=== PATIENT | female | born 1990 | race Caucasian/White ===

== ENCOUNTER → 2020-09-19 | Outpatient (CLI) | payer BC ==
[~2020-09-19] MED LIST: COLACE 100100 MG/CAP PO; FLONASEALLERGY NS; LEXAPRO20 MG PO; MOTRIN 800800 MG/TAB PO; PERCOCET 325 MG1 TA2 PO; PRENATAL MVI; ZYRTEC 10MG10 MG PO
== END ==
LOC: ZCOL.LAB 18:19
DX: R10.31 Right lower quadrant pain (principal)

== ENCOUNTER → 2020-09-25 | Outpatient (CLI) | payer OTHER | LOC: COL.LAB 11:49 | DX: O36.80X1 Pregnancy with inconclusive fetal viability, fetus 1 (principal); Z3A.00 Weeks of gestation of pregnancy not specified ==

== ENCOUNTER 2021-05-23 10:48 | Inpatient (IN) | payer OTHER ==
[~2021-05-23] VITALS: Ht 170.2 cm; Wt 102.7 kg
[2021-05-28] VITALS (54 sets, daily range): BP systolic 81–131; BP diastolic 38–80; PULSE 58–104; TEMP 97.5–98.2
--- NOTE | 2021-05-28 06:24 | NUR ---
Pt arrives on unit ambulatory with spouse for IOL. Changed into a clean gown. EFM and toco applied. VSS. Denies vaginal bleeding, LOF, regular ctx and reports GFM. IV started in LW. Labs drawn. LR infusing. Admission assessment completed. Consents signed. Pt updated on POC. Bed locked in low position. Call light within reach. Oriented to room. No questions or concerns at this time.
[2021-05-28] MEDS ORDERED: ZYRTEC 10MG10 MG PO (06:50)
[2021-05-28] MEDS ORDERED: LEXAPRO20 MG PO (06:50)
[2021-05-28] MEDS ORDERED: FLONASEALLERGY NS (06:51)
[2021-05-28] MEDS ORDERED: PRENATAL MVI (06:51)
[2021-05-28] MEDS ORDERED: COLACE 100100 MG/CAP PO (06:51)
[2021-05-28 07:24] LABS: BASO % 0.4 % (0.0-2.0); EOS % 0.4 % (0-4.0); GRAN # 8.5 K/mm3 (1.4-6.5); GRAN % 77.8 % (42.2-75.2); HEMOGLOBIN 12.6 g/dl (12.5-16.0); LYMPH # 1.5 K/mm3 (1.2-3.4); LYMPH % 14.1 % (20.0-51.0); MEAN CELL VOLUME 87 fl (80.0-100.0); MEAN CORPUSCULAR HEMOGLOBIN 30 pg (27.0-31.0); MEAN CORPUSCULAR HGB CONC 34 g/dl (33.0-37.0); MEAN PLATELET VOLUME 12.5 fl (7.4-10.4); MONO # 0.7 K/mm3 (0.1-0.6); MONO % 6.8 % (1.7-9.3); PLATELET COUNT 222 K/mm3 (130-400); RED BLOOD COUNT 4.19 M/mm3 (4.10-5.30); REDCELL DISTRIBUTION WIDTH-CV 13.1 % (11.5-14.5)
[2021-05-28 07:29] LABS: HEMATOCRIT 36.6 % (37.0-47.0)
--- NOTE | 2021-05-28 08:15 | NUR ---
0815-Dr. Coronado at bedside. AROM of clear fluid. Pericare performed. Variable deceleration. Pt repostioned LL. 0818-FHR remains in the 100s. Pt repostioned RL. Dr. Coronado remains on unit. 0820-FHR returns to 120 baseline.
--- NOTE | 2021-05-28 11:13 | NUR ---
Pt sitting upright for epidural placement. Difficulty tracing FHR due to maternal position. RN at bedside adjusting monitors. FHR audible.
--- NOTE | 2021-05-28 11:34 | NUR ---
FHR deceleration with ctx. Difficulty tracing FHR and determining type of deceleration. Pt repostioned HF to LL. 1143-Decelerations continue. RN at bedside. FHR abruptly drops and returns to 125 baseline. Pt repositioned RL. 1157-RN remains at bedside holding monitors to patient. Variable deceleration audible. 1200-Abrupt deceleration into the 70s for approximately 30 seconds from 135 baseline. Pt repositioned LL. 1203-Dr. Coronado at bedside. SVE per provider with bloody show. FSE applied. Pt repostioned LL with ST.
--- NOTE | 2021-05-28 13:49 | NUR ---
Dr. Coronado on unit. Reviews FHR strip. Continue expectant management of labor.
--- NOTE | 2021-05-28 14:10 | NUR ---
Dr. Coronado on unit. SVE per provider unchanged. Attempt for IUPC. Unable to trace ctx. Orders to continue increasing pitocin. Pt agrees to POC.
--- NOTE | 2021-05-28 16:27 | NUR ---
Dr. Coronado on unit. SVE unchanged. Discussed potential for c/s. Pt wanted to discuss options with spouse first.
--- NOTE | 2021-05-28 16:30 | NUR ---
Decision for c/s. 1632-Pt taken off monitors and to OR.
[2021-05-29 01:45] VITALS: BP 99/71; PULSE 79; TEMP 98.1
[2021-05-29 05:00] VITALS: BP 107/58; PULSE 70; TEMP 97.5
[2021-05-29 07:00] VITALS: BP 124/68; PULSE 76; TEMP 98.3
--- NOTE | 2021-05-29 09:29 | NUR ---
Initial visit; Patient and her () thanked [employer] for offering congratulations and God's blessings for the of their daughter and for choosing [facility].
--- NOTE | 2021-05-29 12:14 | NUR ---
1200 UP TO SHOWER, TOLERATES WELL. DRESSING OFF, HEPLOCK OUT. PATIENT AND [facility]
[2021-05-29 16:27] VITALS: BP 124/68; PULSE 76; TEMP 98.5
[2021-05-29 20:30] VITALS: BP 96/44; PULSE 77; TEMP 97.8
[2021-05-30] MEDS ORDERED: MOTRIN 800800 MG/TAB PO (07:41)
[2021-05-30] MEDS ORDERED: PERCOCET 325 MG1 TA2 PO (07:41)
[2021-05-30 07:50] VITALS: BP 106/57; PULSE 71; TEMP 98
--- NOTE | 2021-05-30 13:47 | NUR ---
1130 REVIEW DISCHARGE INSTRUCTIONS WITH PATIENT AND SPOUSE. DENIES QUESTIONS OR NEEDS. dISCHARGE ANBULATORY WITH SPOUSE AND TO CAR ACCOMPNIED BY NURSE.
== END 2021-05-30 12:20 | disposition home or self-care (01) | DRG 788 ==
LOC: OB 10:48 → LDR 05-28 06:08 → OB 05-28 06:08
PROVIDERS: ADMIT Obstetrics & Gynecology
PROC: 10D00Z1 Extraction of Products of Conception, Low, Open Approach (ICD-10-PCS; principal; 2021-05-28)
PROC: 3E033VJ Introduction of Other Hormone into Peripheral Vein, Percutaneous Approach (ICD-10-PCS; 2021-05-28)
DX: O48.0 Post-term pregnancy (principal); O99.344 Other mental disorders complicating childbirth; F41.9 Anxiety disorder, unspecified; F32.A Depression, unspecified; O62.1 Secondary uterine inertia; O76 Abnormality in fetal heart rate and rhythm complicating labor and delivery; O61.9 Failed induction of labor, unspecified; Z37.0 Single live birth; Z3A.41 41 weeks gestation of pregnancy; Z23 Encounter for immunization
CPT/HCPCS: J0171; J0690; J1200; J1885; J2175; J2270; J2370; J2400; J2405; J2590; J2795; J7120